=== PATIENT | female | born 1995 | race Caucasian/White ===

== ENCOUNTER 2024-03-23 19:22 | Emergency (ER) | payer SELFPAY ==
[2024-03-23 19:24] VITALS: BP 125/70
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
[2024-03-23 20:39] VITALS: BP 104/60
[2024-03-23 20:40] VITALS: BP 104/60
== END 2024-03-23 20:42 | disposition home or self-care (01) ==
LOC: EMR 19:22
PROVIDERS: EMERGENCY PHYSICIAN Emergency Medicine; FAMILY PHYSICIAN Family Medicine
DX: S20.211A Contusion of right front wall of thorax, initial encounter (principal); V49.50XA Passenger injured in collision with unspecified motor vehicles in traffic accident, initial encounter; Y92.410 Unspecified street and highway as the place of occurrence of the external cause; R03.0 Elevated blood-pressure reading, without diagnosis of hypertension; Z91.018 Allergy to other foods
CPT/HCPCS: 99282

== ENCOUNTER → 2025-07-22 12:56 | Outpatient (REF) | payer OTHER, MEDICARE, SELFPAY | LOC: HWRCS 12:56 | PROVIDERS: ATTENDING PHYSICIAN Internal Medicine Cardiovascular Disease; FAMILY PHYSICIAN Family Medicine | DX: Q21.10 Atrial septal defect, unspecified (principal); Q21.0 Ventricular septal defect; Q25.0 Patent ductus arteriosus; G47.33 Obstructive sleep apnea (adult) (pediatric) | CPT/HCPCS: 93306 ==